=== PATIENT | male | born 1965 | race American Indian/Alaskan Native ===

== ENCOUNTER 2018-05-23 10:44 | Inpatient (IN) | payer BC ==
[2018-05-23] VITALS (12 sets, daily range): BP systolic 111–149; BP diastolic 62–90
[~2018-05-23] VITALS: Ht 180.3 cm; Wt 100.0 kg
[2018-05-23] MEDS ORDERED: metoclopramide 5 mg/ml inj IV ONE (11:10)
[2018-05-23] MEDS ORDERED: ketorolac trometh. 30mg/ml inj. IV ONE (11:10)
[2018-05-23] MEDS ORDERED: normal saline 1000ML IV soln IVB ONE ×3 (11:10→13:15)
[2018-05-23] MEDS ORDERED: diphenhydrAMINE 50 mg/ml inj IV ONE (11:10)
[2018-05-23 11:17] LABS: BASOPHILS % (AUTO) 0.2 % (0-1); EOSINOPHILS % (AUTO) 0.1 % (0-6); HEMATOCRIT 42.1 % (42.0-52.0); LYMPHOCYTES % (AUTO) 8.9 % (21-51); MEAN CORPUSCULAR HGB CONC 33.2 g/dL (33.0-36.5); MEAN CORPUSCULAR VOLUME 90.1 FL (78-98); MONOCYTES # (AUTO) 0.4 X10'3 (0-0.9); MONOCYTES % (AUTO) 3.8 % (2-12); NEUTROPHILS # (AUTO) 10.1 X10'3 (1.8-7.7); PLATELET COUNT 198 X10'3 (140-440); RED BLOOD COUNT 4.68 X10'6 (4.70-6.10); RED CELL DISTRIBUTION WIDTH 13.8 % (11.5-14.5); WHITE BLOOD COUNT 11.6 X10'3 (4.5-11.0)
[2018-05-23 11:23] LABS: INR 1.1 INR; PROTHROMBIN TIME 10.7 SECONDS (9.0-12.0)
[2018-05-23 11:28] LABS: ALANINE AMINOTRANSFERASE 47 U/L (12-78); ALBUMIN 4.3 G/DL (3.4-5.0); ALBUMIN/GLOBULIN RATIO 1.3 (1.1-1.5); ALKALINE PHOSPHATASE 78 IU/L (46-116); ANION GAP 10 (8-16); ASPARTATE AMINO TRANSFERASE 18 U/L (10-37); BILIRUBIN,TOTAL 0.5 MG/DL (0.1-1.0); BLOOD UREA NITROGEN 21 MG/DL (7-18); BUN/CREATININE RATIO 19.8 (5.4-32.0); CALCIUM 8.9 MG/DL (8.5-10.1); CHLORIDE 102 MMOL/L (99-107); CREATININE 1.06 MG/DL (0.60-1.10); GLUCOSE 167 MG/DL (70-104); LIPASE 134 U/L (73-393); SODIUM 137 MMOL/L (135-145); TOTAL CARBON DIOXIDE 25.1 MMOL/L (24-32); TOTAL PROTEIN 7.7 G/DL (6.4-8.2); eGFR 74 ML/MIN
[2018-05-23 13:55] LABS: CLARITY,URINE CLEAR (Clear); COLOR,URINE YELLOW (Yellow); GLUCOSE, URINE NEGATIVE (Neg); KETONES,URINE TRACE mg/dl (Neg); LEUKOCYTE ESTERASE ,URINE NEGATIVE (Neg); NITRITES, URINE NEGATIVE (Neg); OCCULT BLOOD,URINE NEGATIVE (Neg); PROTEIN,URINE NEGATIVE (Neg); UROBILINOGEN,URINE 0.2 E.U/dL (0.2-1.0)
[2018-05-23 13:58] LABS: UA COLLECTION TYPE CLN CATCH MIDSTREAM
[2018-05-23] MEDS ORDERED: ONDA4TAB12 PO (14:01)
[2018-05-23] MEDS ORDERED: mag hydrox/Alum hydrox/simeth 30ml oral suspension PO ONE (14:30)
[2018-05-23] MEDS ORDERED: LIDOcaine Viscous 15ml cup PO ONE (14:30)
[2018-05-23] MEDS ORDERED: DICY10CA88 PO (15:41)
[2018-05-23] MEDS ORDERED: OMEP40CA37 PO (15:41)
[2018-05-23] MEDS ORDERED: NO HOME MEDS (16:19)
[2018-05-23] MEDS ORDERED: morphine 4 MG/ML inj SYRINge IV ONE (16:20)
[2018-05-23] MEDS ORDERED: piperacillin/tazo 3.375gm/50ml 50 ML IV ONE (16:25)
[2018-05-23] MEDS ORDERED: ondansetron/PF 4mg/2ml inj IV PRN ×2 (17:00→21:20)
[2018-05-23] MEDS ORDERED: morphine 4 MG/ML inj SYRINge IV PRN ×4 (17:00→21:20)
[2018-05-23] MEDS ORDERED: magnesium 2GM in 50ml NS 50 ML IV PRN (17:00)
[2018-05-23] MEDS ORDERED: magnesium hydroxide 30ml (MOM) UD suspension PO PRN (17:00)
[2018-05-23] MEDS ORDERED: HYDROcodone/acetaminophen 5mg/325mg tablet PO PRN (17:00)
[2018-05-23] MEDS ORDERED: magnesium Cl slow-release 64mg tablet PO PRN (17:00)
[2018-05-23] MEDS ORDERED: magnesium 4gm in 100ml NS 100 ML IV PRN (17:00)
[2018-05-23] MEDS ORDERED: potassium Cl 20 mEq SR tablet PO PRN ×2 (17:00)
[2018-05-23] MEDS ORDERED: acetaminophen 325mg tablet PO PRN ×2 (17:00)
[2018-05-23] MEDS ORDERED: potassium Cl 40MEQ/NS 500ml 500 ML IV PRN ×2 (17:00)
[2018-05-23] MEDS: normal saline 1000ml 1,000 ML IV SCH (17:11)
--- NOTE | 2018-05-23 18:15 | NUR ---
PT UNDRESSED AND IN GOWN. PT GETTING EKG. PT HAS NOT HAD ANY FOOD TODAY. HAD ORAL FLUIDS THIS AM.
[2018-05-23] MEDS ORDERED: sevoflurane 250ml liquid IH ONE (20:21)
[2018-05-23] MEDS ORDERED: glycopyrrolate 0.2mg/ml inj ONE (20:21)
[2018-05-23] MEDS ORDERED: midazolam 2 mg/2 ml injection ONE (20:21)
[2018-05-23] MEDS ORDERED: neostigmine methylsulfate 1 MG/ML 10ml vial ONE (20:21)
[2018-05-23] MEDS ORDERED: fentaNYL /PF 50mcg/ml 5ml ampule ONE (20:22)
[2018-05-23] MEDS ORDERED: propofol inj 20 ML IV ONE ×2 (20:39→20:40)
[2018-05-23] MEDS ORDERED: LIDOcaine 2% (20mg/ml) 5ml vial ONE (20:40)
[2018-05-23] MEDS ORDERED: ondansetron/PF 4mg/2ml inj ONE (20:40)
[2018-05-23] MEDS ORDERED: succinylcholine 20mg/ml inj IV ONE (20:40)
[2018-05-23] MEDS ORDERED: dexamethasone sod phosphate 4mg/ml inj. ONE (20:40)
[2018-05-23] MEDS ORDERED: rocuronium 10mg/ml inj IV ONE (20:40)
[2018-05-23] MEDS ORDERED: meperidine/PF 25mg/ml syringe ONE (21:09)
--- NOTE | 2018-05-23 21:10 | NUR ---
Received from OR via BED, accompanied by Anesthesiologist DR JONES-- and report given by Anesthesiolgist. PATIENT A&OX4, DENIES PAIN, V/S WNL, NEUROVASCULAR CHECKS INTACT, 20G PIV RUE, SCD ON, 3 BANDAIDS TO ABDOMEN CDI
[2018-05-23] MEDS ORDERED: ringers solution, lacted 1,000 ML IV SCH (21:17)
[2018-05-23] MEDS ORDERED: meperidine/PF 25mg/ml syringe IV PRN ×3 (21:20)
[2018-05-23] MEDS ORDERED: proCHLORperazine 10 MG/2 ml inj IV PRN (21:20)
--- NOTE | 2018-05-23 21:40 | NUR ---
I have received report from Ha RICE and had the opportunity to ask questions and assume patient care. Will assess patient when he arrives to floor.
--- NOTE | 2018-05-23 21:50 | NUR ---
PATIENT A&OX4, DENIES PAIN, V/S WNL, NEUROVASCULAR CHECKS INTACT, 20G PIV RUE, SCD ON, 3 BANDAIDS TO ABDOMEN CDI. PATIENT TAKEN TO SURGICAL WITH ALL BELONGINGS AND HOOKED UP TO MONITORS IN ROOM AND REPORT GIVEN TO MORTGAGE PROCESSING CLERK WHO HAS TAKEN OVER PATIENT CARE.
[2018-05-23] MEDS: heparin, porcine 5000 units/ml vial SQ SCH (22:12)
[2018-05-23] MEDS ORDERED: BUPIVAcaine/PF 2.5mg/ml (0.25%) 10ml vial ONE (23:10)
[2018-05-23] MEDS ORDERED: sugammadex 200mg/2ml injection IV ONE (23:16)
[2018-05-24] VITALS (7 sets, daily range): BP systolic 112–131; BP diastolic 69–84
[2018-05-24] MEDS: piperacillin/tazo 3.375gm/50ml 50 ML IV SCH ×2 (00:13→08:25)
[2018-05-24] MEDS: normal saline 1000ml 1,000 ML IV SCH ×2 (02:59→11:35)
[2018-05-24 06:05] LABS: BASOPHILS % (AUTO) 0.3 % (0-1); EOSINOPHILS % (AUTO) 0.2 % (0-6); HEMATOCRIT 36.3 % (42.0-52.0); HEMOGLOBIN 12.1 g/dl (14.0-17.9); LYMPHOCYTES # (AUTO) 2.1 X10'3 (1.1-4.8); LYMPHOCYTES % (AUTO) 17.6 % (21-51); MEAN CORPUSCULAR HEMOGLOBIN 30.3 PG (27.0-31.0); MEAN CORPUSCULAR HGB CONC 33.3 g/dL (33.0-36.5); MEAN CORPUSCULAR VOLUME 90.8 FL (78-98); MEAN PLATELET VOLUME 9.7 FL (7.4-10.4); MONOCYTES # (AUTO) 1.2 X10'3 (0-0.9); MONOCYTES % (AUTO) 9.8 % (2-12); NEUTROPHILS # (AUTO) 8.7 X10'3 (1.8-7.7); NEUTROPHILS % (AUTO) 72.1 % (42-75); PLATELET COUNT 159 X10'3 (140-440); RED BLOOD COUNT 3.99 X10'6 (4.70-6.10); RED CELL DISTRIBUTION WIDTH 13.8 % (11.5-14.5); WHITE BLOOD COUNT 12.1 X10'3 (4.5-11.0)
[2018-05-24 06:22] LABS: ALANINE AMINOTRANSFERASE 40 U/L (12-78); ALBUMIN 3.3 G/DL (3.4-5.0); ALBUMIN/GLOBULIN RATIO 1.1 (1.1-1.5); ALKALINE PHOSPHATASE 63 IU/L (46-116); ANION GAP 7 (8-16); ASPARTATE AMINO TRANSFERASE 15 U/L (10-37); BILIRUBIN,TOTAL 0.9 MG/DL (0.1-1.0); BLOOD UREA NITROGEN 12 MG/DL (7-18); BUN/CREATININE RATIO 11.5 (5.4-32.0); CALCIUM 8.1 MG/DL (8.5-10.1); CHLORIDE 105 MMOL/L (99-107); CREATININE 1.04 MG/DL (0.60-1.10); GLUCOSE 107 MG/DL (70-104); MAGNESIUM 1.7 MG/DL (1.5-2.4); POTASSIUM 3.6 MMOL/L (3.5-5.1); SODIUM 138 MMOL/L (135-145); TOTAL PROTEIN 6.2 G/DL (6.4-8.2); eGFR 75 ML/MIN
--- NOTE | 2018-05-24 06:26 | NUR ---
Patient in room [facility]. I have received report from Radha RICE and had the opportunity to ask questions and assume patient care.
--- NOTE | 2018-05-24 06:31 | NUR ---
Problems reprioritized. Patient report given, questions answered & plan of care reviewed with Ina RICE. Patient sitting in bed, will continue to monitor.
[2018-05-24] MEDS: HYDROcodone/acetaminophen 10/325mg tab PO PRN ×2 (07:15→11:34)
[2018-05-24] MEDS: heparin, porcine 5000 units/ml vial SQ SCH (07:17)
[2018-05-24] MEDS ORDERED: K and/or MAG REPLACEMENT MC SCH (08:00)
--- NOTE | 2018-05-24 15:20 | NUR ---
Patient seen by Doctor Rodgers and Doctor Douglas, is for discharge. All discharge instructions given and discussed with patient and spouse. Work note faxed to this unit and delivered to patient. Doctor Rodgers office phoned through order for fahad at [facility] in [place]. Going home in private vehicle with . Discharged at 1520.
== END 2018-05-24 15:30 | disposition home or self-care (01) | DRG 343 ==
LOC: ER 10:44 → ED HOLD 16:59 → SUR 3N 21:45
PROVIDERS: ADMIT Internal Medicine; ATTEND Internal Medicine
PROC: 0DTJ4ZZ Resection of Appendix, Percutaneous Endoscopic Approach (ICD-10-PCS; principal; 2018-05-23 20:21)
DX: K35.891 Other acute appendicitis without perforation, with gangrene (principal); E86.0 Dehydration; Z87.442 Personal history of urinary calculi; Z88.2 Allergy status to sulfonamides
CPT/HCPCS: 96361; 96374; 96375; 99285; Z7506; 36415; 74176; 80053; 81003; 83690; 83735; 84145; 85025; 85610; 87070; 93005; A7000; C9399; G0378; J0330; J1100; J1200; J1644; J1885; J2001; J2175; J2250; J2270; J2405; J2543; J2704; J2710; J2765; J3010; J3490; J7030; J7120

== ENCOUNTER 2022-08-23 21:25 | Emergency (ER) | payer BC ==
[~2022-08-23] VITALS: Ht 180.3 cm; Wt 113.2 kg
[~2022-08-23 21:25] MED LIST: NO HOME MEDS
[2022-08-23 21:46] LABS: BASOPHILS % (AUTO) 0.4 % (0-1); EOSINOPHILS % (AUTO) 0 % (0-6); HEMATOCRIT 41.4 % (42.0-52.0); HEMOGLOBIN 13.6 g/dl (14.0-17.9); LYMPHOCYTES # (AUTO) 1.3 X10'3 (1.1-4.8); LYMPHOCYTES % (AUTO) 9.7 % (21-51); MEAN CORPUSCULAR HEMOGLOBIN 29.4 PG (27.0-31.0); MEAN CORPUSCULAR HGB CONC 32.9 g/dL (33.0-36.5); MEAN CORPUSCULAR VOLUME 89.3 FL (78-98); MEAN PLATELET VOLUME 8.7 FL (7.4-10.4); MONOCYTES % (AUTO) 7.4 % (2-12); NEUTROPHILS # (AUTO) 11.1 X10'3 (1.8-7.7); NEUTROPHILS % (AUTO) 82.5 % (42-75); PLATELET COUNT 214 X10'3 (140-440); RED BLOOD COUNT 4.64 X10'6 (4.70-6.10); RED CELL DISTRIBUTION WIDTH 13.8 % (11.5-14.5); WHITE BLOOD COUNT 13.4 X10'3 (4.5-11.0)
[2022-08-23 22:00] LABS: ALANINE AMINOTRANSFERASE 62 U/L (12-78); ALBUMIN 4.1 G/DL (3.4-5.0); ALBUMIN/GLOBULIN RATIO 1.2 (1.1-1.5); ALKALINE PHOSPHATASE 68 IU/L (46-116); ANION GAP 5 (8-16); ASPARTATE AMINO TRANSFERASE 29 U/L (10-37); BILIRUBIN,TOTAL 0.5 MG/DL (0.1-1.0); BLOOD UREA NITROGEN 19 MG/DL (7-18); BUN/CREATININE RATIO 11.9 (10.0-20.0); CHLORIDE 104 MMOL/L (99-107); GLUCOSE 202 MG/DL (70-104); LIPASE 99 U/L (73-393); POTASSIUM 4.2 MMOL/L (3.5-5.1); SODIUM 137 MMOL/L (135-145); TOTAL CARBON DIOXIDE 27.6 MMOL/L (24-32); TOTAL PROTEIN 7.4 G/DL (6.4-8.2); eGFR 45 ML/MIN
[2022-08-23 22:55] LABS: CLARITY,URINE SLIGHTLY CLOUDY (Clear); COLOR,URINE YELLOW (Yellow); GLUCOSE, URINE NEGATIVE (Neg); KETONES,URINE 15 mg/dl (Neg); LEUKOCYTE ESTERASE ,URINE NEGATIVE (Neg); NITRITES, URINE NEGATIVE (Neg); OCCULT BLOOD,URINE MODERATE (Neg); PROTEIN,URINE NEGATIVE (Neg); UROBILINOGEN,URINE 0.2 E.U/dL (0.2-1.0)
[2022-08-23] MEDS ORDERED: tamsulosin 0.4mg capsule PO ONE (23:05)
[2022-08-23] MEDS ORDERED: normal saline 1000ml 1,000 ML IV ONE (23:05)
[2022-08-23] MEDS ORDERED: morphine 4 MG/ML inj SYRINge IV ONE (23:05)
[2022-08-23] MEDS ORDERED: ketorolac trometh. 30mg/ml inj. IV ONE (23:05)
[2022-08-23] MEDS ORDERED: ondansetron/PF 4mg/2ml inj IV ONE (23:05)
[2022-08-23 23:06] LABS: UA COLLECTION TYPE CLN CATCH MIDSTREAM
[2022-08-23 23:17] LABS: WBC,URINE 0-4 /HPF (0-4)
[2022-08-23 23:18] LABS: BACTERIA,URINE FEW /HPF (Neg); MUCUS STRANDS NONE SEEN /LPF (Neg); SQUAMOUS EPITHELIAL CELL,UR NONE SEEN /LPF (FEW)
[2022-08-23 23:19] LABS: YEAST MANY /HPF (NEGATIVE)
[2022-08-24] MEDS ORDERED: HYDR-3965 PO (00:14)
[2022-08-24] MEDS ORDERED: ONDA8TAB13 PO (00:14)
[2022-08-24] MEDS ORDERED: morphine 4 MG/ML inj SYRINge IV ONE (00:15)
[2022-08-24 00:59] VITALS: BP 131/77
== END 2022-08-24 01:00 | disposition home or self-care (01) ==
LOC: ER 21:26
DX: N23 Unspecified renal colic (principal); Z88.2 Allergy status to sulfonamides; Z79.899 Other long term (current) drug therapy
CPT/HCPCS: 36415; 80053; 81001; 83690; 85025; 87088; 96374; 96375; 96376; 99284; J1885; J2270; J2405; J7030

== ENCOUNTER 2024-03-26 13:08 | Emergency (ER) | payer BC ==
[~2024-03-26] VITALS: Ht 180.3 cm; Wt 111.0 kg
[~2024-03-26 13:08] MED LIST changes: +ONDA-245 PO
[2024-03-26 13:30] LABS: BASOPHILS # (AUTO) 0.1 X10'3 (0-0.2); BASOPHILS % (AUTO) 0.7 % (0-1); EOSINOPHILS # (AUTO) 0.1 X10'3 (0-0.9); EOSINOPHILS % (AUTO) 0.9 % (0-6); HEMATOCRIT 43.8 % (42.0-52.0); HEMOGLOBIN 14.7 g/dl (14.0-17.9); LYMPHOCYTES # (AUTO) 2.4 X10'3 (1.1-4.8); LYMPHOCYTES % (AUTO) 29.6 % (21-51); MEAN CORPUSCULAR HEMOGLOBIN 29.9 PG (27.0-31.0); MEAN CORPUSCULAR HGB CONC 33.6 g/dL (33.0-36.5); MEAN PLATELET VOLUME 9.2 FL (7.4-10.4); MONOCYTES # (AUTO) 0.7 X10'3 (0-0.9); MONOCYTES % (AUTO) 8.8 % (2-12); NEUTROPHILS # (AUTO) 4.9 X10'3 (1.8-7.7); PLATELET COUNT 211 X10'3 (140-440); RED BLOOD COUNT 4.92 X10'6 (4.70-6.10); RED CELL DISTRIBUTION WIDTH 13.2 % (11.5-14.5); WHITE BLOOD COUNT 8.2 X10'3 (4.5-11.0)
[2024-03-26 13:44] LABS: ALANINE AMINOTRANSFERASE 38 U/L (12-78); ALBUMIN 4.5 G/DL (3.4-5.0); ALBUMIN/GLOBULIN RATIO 1.1 (1.1-1.5); ALKALINE PHOSPHATASE 78 IU/L (46-116); ANION GAP 8 (8-16); ASPARTATE AMINO TRANSFERASE 21 U/L (10-37); BILIRUBIN,TOTAL 0.7 MG/DL (0.1-1.0); BLOOD UREA NITROGEN 15 MG/DL (7-18); BUN/CREATININE RATIO 12.9 (10.0-20.0); CALCIUM 9.2 MG/DL (8.5-10.1); CHLORIDE 101 MMOL/L (99-107); CREATININE 1.16 MG/DL (0.60-1.10); POTASSIUM 4.3 MMOL/L (3.5-5.1); SODIUM 136 MMOL/L (135-145); TOTAL CARBON DIOXIDE 27.2 MMOL/L (24-32); TOTAL PROTEIN 8.7 G/DL (6.4-8.2); eCRCL 75 ML/MIN; eGFR 65 ML/MIN
[2024-03-26 13:47] LABS: AMYLASE 65 U/L (25-115); GLUCOSE 226 MG/DL (70-104); LIPASE 51 U/L (16-77)
[2024-03-26] MEDS: ondansetron/PF 4mg/2ml inj IV ONE ×2 (15:09→19:42)
[2024-03-26] MEDS: normal saline 1000ml 1,000 ML IV ONE (15:10)
[2024-03-26] MEDS: morphine 4 MG/ML inj SYRINge IV ONE (15:10)
[2024-03-26] MEDS: HYDROmorphone inj. 0.5 MG/0.5 ML DISP.SYRIN IV ONE ×2 (15:35→16:48)
[2024-03-26] MEDS ORDERED: iohexol 350MG/ML 100ml bottle IV ONE (15:47)
[2024-03-26] MEDS: famotidine 20mg tablet PO ONE (17:34)
[2024-03-26] MEDS: LIDOcaine 2% Viscous 15ml cup MM PRN (17:34)
[2024-03-26] MEDS: mag hydrox/Alum hydrox/simeth 30ml oral suspension PO ONE (17:34)
[2024-03-26] MEDS ORDERED: ONDA-245 PO (17:52)
[2024-03-26] MEDS ORDERED: MAG355OR18 PO (17:52)
[2024-03-26] MEDS ORDERED: OMEP40CA21 PO (17:52)
[2024-03-26 18:05] LABS: BILIRUBIN,URINE NEGATIVE (Neg); CLARITY,URINE CLEAR (Clear); COLOR,URINE YELLOW (Yellow); GLUCOSE, URINE 250 mg/dl (Neg); KETONES,URINE 15 mg/dl (Neg); LEUKOCYTE ESTERASE ,URINE NEGATIVE (Neg); NITRITES, URINE NEGATIVE (Neg); OCCULT BLOOD,URINE NEGATIVE (Neg); PROTEIN,URINE NEGATIVE (Neg); UROBILINOGEN,URINE 0.2 E.U/dL (0.2-1.0)
[2024-03-26] MEDS ORDERED: HYDR-3964 PO (18:16)
[2024-03-26 18:20] LABS: UA COLLECTION TYPE NON-SPECIFIED
[2024-03-26] MEDS: morphine 10mg/ml inj. IV ONE (19:45)
[2024-03-26] MEDS: normal saline 1000ML IV soln IVB ONE (19:50)
[2024-03-26] MEDS ORDERED: iohexol 300mg/ml 100ml inj. ONE (19:53)
[2024-03-26 20:31] LABS: URINE AMPHETAMINE SCREEN NEGATIVE (Neg); URINE BARBITUATE SCREEN NEGATIVE (Neg); URINE BENZODIAZEPINES SCREEN NEGATIVE (Neg); URINE CANNABINOID SCREEN NEGATIVE (Neg); URINE COCAINE SCREEN NEGATIVE (Neg); URINE METHADONE SCREEN NEGATIVE (Neg); URINE OPIATE SCREEN POSITIVE (Neg); URINE PHENCYCLIDINE SCREEN NEGATIVE (Neg)
[2024-03-26] MEDS: hyoscyamine 0.125mg TAB.SUBL SL ONE (22:14)
[2024-03-26] MEDS: ketorolac trometh 15mg/ml vial 15 MG/ML ML IV ONE (22:14)
[2024-03-26] MEDS: acetaminophen 1,000mg/100ml IV 100 ML IV ONE (22:14)
[2024-03-26] MEDS ORDERED: DICY20TA12 PO (23:12)
[2024-03-26 23:33] VITALS: BP 138/87; PULSE 81; RESP 20; TEMP 98.4; O2SAT 98
== END 2024-03-26 23:38 | disposition home or self-care (01) ==
LOC: ER 13:08
DX: R10.13 Epigastric pain (principal); E11.9 Type 2 diabetes mellitus without complications; Z87.442 Personal history of urinary calculi; Z88.2 Allergy status to sulfonamides; Z79.899 Other long term (current) drug therapy
CPT/HCPCS: 36415; 71275; 74177; 76700; 80053; 80305; 81003; 82150; 83690; 84484; 85025; 93005; 96361; 96365; 96375; 96376; 99285; J0131; J1171; J1885; J2270; J2274; J2405; J7030; Q9967